=== PATIENT | female | born 1955 | race Caucasian/White ===

== ENCOUNTER 2017-03-13 16:55 | Emergency (ER) | payer MEDICARE, MEDICAID, SELFPAY ==
[2017-03-13 16:57] VITALS: BP 139/97; PULSE 99; RESP 18; TEMP 36.5; O2SAT 96; BMI 35.4
--- NOTE | 2017-03-13 17:40 | [facility].EDGENADL ---
ED Disposition Clinical Impression: Mouth pain Disposition: Home, Self-Care Condition on Discharge: Good Instructions: DI for Mouth Pain Referrals: Gricelda Chapa MD [Consulting Physician] - Time of Disposition: 17:41 - Critical Care Critical Care Time: No Attestation: On 03/13/17, the high probability of a clinically significant, sudden or life threatening deterioration of the following system(s) required my full and direct attention, intervention and personal management. The time I documented below is in addition to time spent performing reported procedures but includes the following listed in this critical care notation. Medical Decision Making - Medical Records Medical records reviewed: Yes: I reviewed the patient's medical records. Vital Signs: 03/13/17 16:57 03/13/17 17:48 Temperature 97.7 F 98.1 F Temperature Source Oral Oral Pulse Rate 96 H Pulse Rate [Right Brachial] 99 H Respiratory Rate 18 18 Blood Pressure [Right Arm] 139/97 Blood Pressure Mean [Right Arm] 111 Blood Pressure Source Manual Cuff/ Palpation Blood Pressure Source [Right Arm] Automatic Cuff Blood Pressure Position Sitting Blood Pressure Position [Right Arm] Sitting 02 Sat by Pulse Oximetry 96 Oxygen Delivery Method Room Air Room Air - Lab Data Lab results reviewed: Yes: I reviewed the patient's lab results. - Julien Inquiry Pt receiving controlled substance: No - Reevaluation(s) Time: 17:30 Reevaluation #1: Advised the patient that there is absolutely no oral lesion, for her comfort I referred her to ENT (see instructions). General Adult HPI - General Chief complaint: Skin/Abscess/Foreign Body Stated complaint: sores on top of mouth Time Seen by Provider: 03/13/17 17:00 Mode of Arrival: Ambulatory Source of Information: Patient Limitations: No Limitations Description of Symptoms (Recalled from ER Triage Doc. by RN): PT REPORTS SORE ON ROOF OF HER MOUTH, REPORTS HAS BEEN HAVING PAIN IN ROOF OF HER MOUTH X3 MONTHS. PT REPORTS HER NEICE LOOKED IN PT MOUTH AND AREAS OF GREEN, PT STATES I LOOKED ON THE INTERNET AND I THINK I HAVE MOUTH CANCER. 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) Denies:: Diabetes Mellitus Type 1, Diabetes Mellitus Type 2 Laterality Cases: Bilateral: Total Hip Replacement - *Social History Smoking Status: Current every day smoker Tobacco Type: cigarettes # Packs/Day (cigarettes): 3 Alcohol Intake: never - Psychiatric History Expresses thoughts of harming self/others: None Suicide Plan Description: No Plan ROS Obtained: Yes All systems reviewed & no additional complaints - ENT Ears, Nose, Mouth, and Throat: Reports other (mouth pain) Physical Exam - General General appearance: alert, in no apparent distress - Head Head exam: atraumatic, normocephalic, normal inspection - Eye Eye exam: Present: normal appearance, PERRL, EOMI - ENT ENT exam: Present: normal exam, normal oropharynx, mucous membranes moist, TM's normal bilaterally, normal external ear exam - Neck Neck exam: Present: normal inspection, full ROM, trachea midline. Absent: meningismus, lymphadenopathy - Chest Chest inspection: Present: normal inspection, symmetric chest wall rise. Absent: tenderness - Respiratory Respiratory exam: Present: normal lung sounds bilaterally. Absent: respiratory distress - Cardiovascular Cardiovascular exam: Presen
[2017-03-13 17:48] VITALS: PULSE 96; RESP 18; TEMP 36.7; O2SAT 97
== END 2017-03-13 17:49 | disposition home or self-care (01) ==
PROVIDERS: Emergency Provider Emergency Medicine; Family Provider Family Medicine; PCP Family Medicine
DX: K13.79 Other lesions of oral mucosa (principal); F17.210 Nicotine dependence, cigarettes, uncomplicated; Z85.828 Personal history of other malignant neoplasm of skin
CPT/HCPCS: 99282